=== PATIENT | male | born 1985 | race Two or more races ===

== ENCOUNTER 2025-05-22 21:43 | Emergency (ER) | payer OTHER ==
[~2025-05-22] VITALS: Ht 170.2 cm; Wt 86.0 kg
[2025-05-22] MEDS ORDERED: SODIUM CHLORIDE 0.9% 1,000 ML IV ONE (22:00)
[2025-05-22] MEDS ORDERED: ONDANSETRON HCL 4 MG/2 ML VIAL IV ONE (22:00)
[2025-05-22] MEDS ORDERED: MORPHINE SULFATE 4 MG/ML SYR/VIAL IV ONE (22:00)
--- NOTE | 2025-05-22 22:20 | ED.PDOC ---
History of Present Illness HPI Comments 39-year-old male with a history of gallstones status post removal, appendectomy and umbilical hernia repair brought in by family complaining of right upper quadrant pain radiating to the right flank and back, onset yesterday. Patient describes the pain as pulsating, severe, waxing and waning, associated with nausea but no vomiting. He denies fever, diarrhea, constipation or dysuria. Chief Complaint: Abdominal Pain Time Seen by MD: 21:52 Reviewed Notes: Nurses Notes Allergies: Coded Allergies: NO KNOWN ALLERGIES (Unverified , 05/22/25) Information Source: Patient Mode of Arrival: Ambulatory Past Medical History PAST MEDICAL HISTORY: Gallstones Past Medical History (Other): Gallstones Surgical History: Appendectomy, Cholecystectomy, Hernia Repair (Umbilical) Family History Family History: Reviewed,noncontributory to illness Social History Smoker: Non-Smoker Alcohol: Denies ETOH Use Drugs: Denies Drug Use Lives In: Home All Other Systems: Reviewed and Negative (Comprehensive systems review obtained and negative except for what is stated in the HPI.) Physical Exam General Appearance: No Apparent Distress HEENT: Other (Pupils and face symmetric. Moist mucous membranes.) Neck: Full Range of Motion, Normal Inspection Respiratory: Lungs Clear, No Accessory Muscle Use, No Respiratory Distress, Normal Breath Sounds Cardiovascular: No Edema, No JVD, Regular Rate/Rhythm Breast Exam: Deferred Gastrointestinal: RLQ, RUQ, Soft, Tenderness (Right flank) Genitalia: Deferred Pelvic: Deferred Rectal: Deferred Extremities: Normal inspection, Normal range of motion, Non-tender, No pedal edema Neurologic: Alert (Oriented x4), Normal Affect, Normal Mood, Other (Ambulatory) Cerebellar Function: NOT DONE Reflexes: NOT DONE Skin: Dry, Normal Color, Warm Lymphatic: NOT DONE Was a procedure done? Was a procedure done?: No Differential Dx Considerations may include: Gastroenteritis, gastritis, biliary tract disease (cholangitis, biliary obstruction), bowel obstruction, ileus, colitis, diverticular disease, UTI, kidney stone, among others X-Ray, Labs, Meds, VS Vital Signs Date Time Temp Pulse Resp B/P (MAP) Pulse Ox O2 Delivery O2 Flow Rate FiO2 05/22/25 21:43 98.2 80 18 116/71 (86) 96 98.2 Lab Test 05/22/25 22:44 Range/Units White Blood Count 8.6 4.4-10.8 10^3/uL Red Blood Count 5.41 4.5-5.90 10^6/uL Hemoglobin 17.5 13.5-17.5 g/dL Hematocrit 50.7 41.0-53.0 % Mean Corpuscular Volume 93.6 80.0-100.0 fL Mean Corpuscular Hemoglobin 32.4 H 28.0-32.0 pg Mean Corpuscular Hemoglobin Concent 34.6 32.0-36.0 g/dL Red Cell Distribution Width 13.7 11.8-14.3 % Platelet Count 196 140-450 10^3/uL Mean Platelet Volume 7.6 6.9-10.8 fL Neutrophils (%) (Auto) 55.2 37.0-80.0 % Lymphocytes (%) (Auto) 29.6 10.0-50.0 % Monocytes (%) (Auto) 11.5 0.0-12.0 % Eosinophils (%) (Auto) 2.9 0.0-7.0 % Basophils (%) (Auto) 0.8 0.0-2.0 % Neutrophils # (Auto) 4.7 1.6-8.6 10 ^3/uL Lymphocytes # (Auto) 2.5 0.4-5.4 10 ^3/uL Monocytes # (Auto) 1.0 0-1.3 10 ^3/uL Eosinophils # (Auto) 0.2 0-0.8 10 ^3/uL Basophils # (Auto) 0.1 0-0.2 10 ^3/uL Nucleated Red Blood Cells 0.2 % Sodium Level 141 136-145 mmol/L Potassium Level 4.1 3.5-5.1 mmol/L Chloride Level 105 98-107 mmol/L Carbon Dioxide Level 28 20-31 mmol/L Anion Gap 8 5-15 Blood Urea Nitrogen 9 9-23 mg/dL Creatinine 1.27 0.700-1.30 mg/dL Glomerular Filtration Rate Calc 73 >90 mL/min BUN/Creatinine Ratio 7.1 L 10.0-20.0 Serum Glucose 93 74-106 mg/dL Calcium Level 9.5 8.7-10.4 mg/dL Total Bilirubin 1.0 0.2-1.0 mg/dL Aspartate Amino Transferase (AST) 65 H 13-40 U/L Alanine Aminotransferase (ALT) 162 H 7-40 U/L Alkaline Phosphatase 84 46-116 U/L Total Protein 7.1 5.7-8.2 g/dL Albumin 4.7 3.2-4.8 g/dL Lipase 42 12-53 U/L [facility] [id number] [facility] [address] Ph: [phone] DIAGNOSTIC IMAGING Diagnostic Imaging Report : [id number] Signed PATIENT: AARON JOSEPHOACCT: [id number] UNIT: [id number] : 1985 LOC: ER ROOM / BED: / AGE / SEX: 39 / M ADM STATUS: REG ER SERVICE ORDERING PHYSICIAN: ALBERTO LYONS MD PROCEDURE(s): ABPL - CT AB PEL WO CON-NO ORAL OR IV REASON: R flank/abd/back pain ORDER NUMBER(s): [id number], ACCESSION NUMBER(s): [id number] Exam: CT CT AB PEL WO CON-NO ORAL OR IV History: R flank/abd/back pain Comparison Study: None Technique: Multidetector spiral CT of the abdomen was performed from lung bases to pubic symphysis. Imaging was performed without IV contrast. Axial, coronal an d sagittal multiplanar reformats were obtained from the axial data set by the technologist. Radiation Dose : 1. Abdomen/Pelvis: CTDIvol 10.35 mGy, DLP 672.22 mGy*cm. Findings: Evaluation of solid organs is limited due to lack of intravenous contrast use. Lung Bases: No acute or significant lung base finding. Normal heart size. No pleural or pericardial effusion. Liver: The liver is mildly enlarged, measuring 19.3 cm in craniocaudal dimension. Diffuse hepatic steatosis. No focal lesions. Gallbladder and Biliary Tree: Gallbladder not identified. Spleen: Unremarkable Pancreas: The pancreas is grossly normal in appearance. Adrenal Glands: Unremarkable Kidneys: Kidneys are grossly normal without calculi or hydronephrosis. Bladder: Grossly unremarkable for degree of distention. Bowel: The stomach is grossly normal in appearance. Small bowel and colon are normal in caliber and distribution. Colonic diverticula without CT evidence of acute diverticulitis. The appendix is surgically absent. Ascites: Absent Lymphadenopathy: No mesenteric, retroperitoneal or periportal lymphadenopathy. Abdominal Wall and Mesentery: Unremarkable. Vasculature: The visualized abdominal aorta is normal in size and caliber. Evaluation of abdominal and pelvic vessels is limited due to lack of intravenous contrast. Pelvic Organs: Unremarkable Musculoskeletal: No aggressive focal bony lesions, acute fractures or dislocation. IMPRESSION: 1. No acute abdominal or pelvic findings. 2. Hepatomegaly and hepatic steatosis. 3. Diverticulosis coli without CT evidence of acute diverticulitis. Radiation optimization: All CT scans at this facility use at least one of these dose optimization techniques: automated exposure control mA and/or kV adjustment per patient size (includes targeted exams where dose is matched to clinical indication) or iterative reconstruction. X-Ray, Labs, Meds, VS Comment 39-year-old male with a history of gallstones status post cholecystectomy, umbilical hernia repair and appendectomy brought in by family complaining of right-sided abdominal pain radiating to the right flank and back, associated with nausea Vitals unremarkable Exam remarkable for right-sided abdominal and flank tenderness to palpation Rhythm strip independently interpreted by me: Sinus rhythm, rate 80, no ectopy. CT abdomen and pelvis IMPRESSION: 1. No acute abdominal or pelvic findings. 2. Hepatomegaly and hepatic steatosis. 3. Diverticulosis coli without CT evidence of acute diverticulitis. CBC unremarkable, CMP remarkable for AST 65, ALT 162, lipase normal, UA was ordered but was never provided. Patient treated with the following in the ED: 1 L 0.9 normal saline IV bolus, morphine 4 mg IV, Zofran 4 mg IV. On re- evaluation, pain had improved. Vitals were stable. Hospitalization was considered, however patient had an essentially unremarkable workup and rapid improvement of symptoms with treatment in the ED, and I no longer feel hospitalization is necessary. He appears stable for discharge with close outpatient follow-up with his primary physician and a prescription for pain medication. I will cover him for possible UTI, as he did not provide a urine sample. Rx Bentyl, Zofran, Cipro, Tylenol Time of 1ST Reevaluation: 22:30 Reevaluation 1ST: Unchanged Patient Education/Counseling: Diagnosis, Treatment, Need For Follow Up Family Education/Counseling: No Family Present SEPSIS Sepsis Screen Date sepsis recognized/suspect: May 22, 2025 Time Sepsis recognized/suspect: 2142 Recent Procedure: No On Antibiotic Therapy: No Respiratory Rate >20: No Heart Rate >90: No Temp<36 C (96.8 F) or >38.3 C: No SBP <90 or MAP <65 mmHG: No New Acute Mental Status Change: No Is the patient on CPAP, BIPAP,: No Physician Orders Urinalysis (05/22/25 21:58) Ct Ab Pel Wo Con-No Oral Or Iv (05/22/25 21:58) Straightcath If Unable To Void (05/22/25 23:52) Vital Signs Date Time Temp Pulse Resp B/P (MAP) Pulse Ox O2 Delivery O2 Flow Rate FiO2 05/22/25 21:43 98.2 80 18 116/71 (86) 96 98.2 Laboratory Tests Test 05/22/25 22:44 White Blood Count 8.6 10^3/uL (4.4-10.8) Departure 1 Departure Time of Disposition: 01:34 Impression: Primary Impression: Abdominal pain Qualified Codes: R10.11 - Right upper quadrant pain Disposition: 01 HOME / SELF CARE / HOMELESS Condition: Stable Additional Instructions: Your blood tests were unremarkable. Your CT scan was unremarkable. I have prescribed medication for pain and antibiotics for a possible infection. Follow-up with your primary doctor in 1-2 days. Return to ER for persistent or worsening symptoms. [place] [address] Ph: [phone] DIAGNOSTIC IMAGING Diagnostic Imaging Report : [id number] Signed PATIENT: BERTRAM JOSEPH ACCT: [id number] UNIT: [id number] : 1985 LOC: ER ROOM / BED: / AGE / SEX: 39 / M ADM STATUS: REG ER SERVICE [id number] ORDERING PHYSICIAN: ALBERTO LYONS MD PROCEDURE(s): ABPL - CT AB PEL WO CON-NO ORAL OR IV REASON: R flank/abd/back pain ORDER NUMBER(s): [id number], ACCESSION NUMBER(s): [id number] Exam: CT CT AB PEL WO CON-NO ORAL OR IV History: R flank/abd/back pain Comparison Study: None Technique: Multidetector spiral CT of the abdomen was performed from lung bases to pubic symphysis. Imaging was performed without IV contrast. Axial, coronal and sagittal multiplanar reformats were obtained from the axial data set by the technologist. Radiation Dose : 1. Abdomen/Pelvis: CTDIvol 10.35 mGy, DLP 672.22 mGy*cm. Findings: Evaluation of solid organs is limited due to lack of intravenous contrast use. Lung Bases: No acute or significant lung base finding. Normal heart size. No pleural or pericardial effusion. Liver: The liver is mildly enlarged, measuring 19.3 cm in craniocaudal dimension. Diffuse hepatic steatosis. No focal lesions. Gallbladder and Biliary Tree: Gallbladder not identified. Spleen: Unremarkable Pancreas: The pancreas is grossly normal in appearance. Adrenal Glands: Unremarkable Kidneys: Kidneys are grossly normal without calculi or hydronephrosis. Bladder: Grossly unremarkable for degree of distention. Bowel: The stomach is grossly normal in appearance. Small bowel and colon are normal in caliber and distribution. Colonic diverticula without CT evidence of acute diverticulitis. The appendix is surgically absent. Ascites: Absent Lymphadenopathy: No mesenteric, retroperitoneal or periportal lymphadenopathy. Abdominal Wall and Mesentery: Unremarkable. Vasculature: The visualized abdominal aorta is normal in size and caliber. Evaluation of abdominal and pelvic vessels is limited due to lack of intravenous contrast. Pelvic Organs: Unremarkable Musculoskeletal: No aggressive focal bony lesions, acute fractures or dislocation. IMPRESSION: 1. No acute abdominal or pelvic findings. 2. Hepatomegaly and hepatic steatosis. 3. Diverticulosis coli without CT evidence of acute diverticulitis. Radiation optimization: All CT scans at this facility use at least one of these dose optimization techniques: automated exposure control mA and/or kV adjustment per patient size (includes targeted exams where dose is matched to clinical indication) or iterative reconstruction. e-Prescriptions Acetaminophen (Tylenol Extra Strength) 500 Mg Tab 1000 MG PO Q6HP PRN, #30 TAB Prn fever or pain Prov: ALBERTO LYONS MD 05/23/25 Ondansetron Odt 4MG Tab (ZOFRAN PO) 4 Mg Tb 4 MG PO TID PRN, #30 TAB Prn nausea/vomiting ODT TAB-DISSOLVE IN MOUTH, THEN SWALLOW Prov: ALBERTO LYONS MD 05/23/25 Dicyclomine Hcl (BENTYL CAPSULE) 10 Mg Cp 2 CAP PO Q6HP PRN, #30 CAP 11 Refills Prn abdominal pain Prov: ALBERTO LYONS MD 05/23/25 Ciprofloxacin Hcl (Cipro) 500 Mg Tab 1 TAB PO BID for 7 Days, #14 TAB Prov: ALBERTO LYONS MD 05/23/25 Discharged With: Relative Critical Care Note Critical Care Time?: No Stability Stability form required: No Heart Score Heart Score: Heart Score Response (Comments) Value History N/A 0 EKG N/A 0 Age N/A 0 Risk Factors N/A 0 Troponin N/A 0 Total 0 ALBERTO LYONS MD May 22, 2025 22:20
[2025-05-22 22:44] LABS: Hematocrit 50.7 % (41.0-53.0); Hemoglobin 17.5 g/dL (13.5-17.5); Mean Corpuscular Hemoglobin 32.4 pg (28.0-32.0); Mean Corpuscular Volume 93.6 fL (80.0-100.0); Nucleated Red Blood Cells % 0.2 %
[2025-05-22 23:01] LABS: Albumin 4.7 g/dL (3.2-4.8); Alkaline Phosphatase 84 U/L (46-116); Anion Gap 8 (5-15); BUN/Creatinine Ratio 7.1 (10.0-20.0); Bilirubin, Total 1.0 mg/dL (0.2-1.0); Calcium 9.5 mg/dL (8.7-10.4); Carbon Dioxide 28 mmol/L (20-31); Chloride 105 mmol/L (98-107); Glucose 93 mg/dL (74-106); Lipase 42 U/L (12-53); Potassium 4.1 mmol/L (3.5-5.1); Sodium 141 mmol/L (136-145); Total Protein 7.1 g/dL (5.7-8.2)
[2025-05-22 23:05] LABS: Alanine Aminotransferase 162 U/L (7-40); Blood Urea Nitrogen 9 mg/dL (9-23)
--- NOTE | 2025-05-22 23:28 | DVH ---
Exam: CT CT AB PEL WO CON-NO ORAL OR IV History: R flank/abd/back pain Comparison Study: None Technique: Multidetector spiral CT of the abdomen was performed from lung bases to pubic symphysis. I maging was performed without IV contrast. Axial, coronal and sagittal multiplanar reformats were obta ined from the axial data set by the technologist. Radiation Dose : 1. Abdomen/Pelvis: CTDIvol 10.35 mGy, DLP 672.22 mGy*cm. Findings: Evaluation of solid organs is limited due to lack of intravenous contrast use. Lung Bases: No acute or significant lung base finding. Normal heart size. No pleural or pericardial effusion. Liver: The liver is mildly enlarged, measuring 19.3 cm in craniocaudal dimension. Diffuse hepatic julieta atosis. No focal lesions. Gallbladder and Biliary Tree: Gallbladder not identified. Spleen: Unremarkable Pancreas: The pancreas is grossly normal in appearance. Adrenal Glands: Unremarkable Kidneys: Kidneys are grossly normal without calculi or hydronephrosis. Bladder: Grossly unremarkable for degree of distention. Bowel: The stomach is grossly normal in appearance. Small bowel and colon are normal in caliber and d istribution. Colonic diverticula without CT evidence of acute diverticulitis. The appendix is surgica lly absent. Ascites: Absent Lymphadenopathy: No mesenteric, retroperitoneal or periportal lymphadenopathy. Abdominal Wall and Mesentery: Unremarkable. Vasculature: The visualized abdominal aorta is normal in size and caliber. Evaluation of abdominal a nd pelvic vessels is limited due to lack of intravenous contrast. Pelvic Organs: Unremarkable Musculoskeletal: No aggressive focal bony lesions, acute fractures or dislocation. IMPRESSION: 1. No acute abdominal or pelvic findings. 2. Hepatomegaly and hepatic steatosis. 3. Diverticulosis coli without CT evidence of acute diverticulitis. Radiation optimization: All CT scans at this facility use at least one of these dose optimization katalina hniques: automated exposure control mA and/or kV adjustment per patient size (includes targeted exam s where dose is matched to clinical indication) or iterative reconstruction.
[2025-05-23] MEDS ORDERED: ACET-1304 PO (01:38)
[2025-05-23] MEDS ORDERED: ZOFR4T PO (01:38)
[2025-05-23] MEDS ORDERED: CIPR-173 PO (01:38)
[2025-05-23] MEDS ORDERED: DICY10CA PO (01:38)
[2025-05-23 03:05] LABS: Urine Protein, UAD Negative (Negative)
[2025-05-23 05:00] VITALS: BP 103/66; PULSE 60; RESP 18; TEMP 98.1; O2SAT 95
[2025-05-23] MEDS: ACETAMINOPHEN 500 MG TAB or CAP PO ONE (05:04)
[2025-05-23] MEDS: ACETAMINOPHEN 325 MG TAB PO ONE (05:04)
== END 2025-05-23 05:05 | disposition home or self-care (01) ==
LOC: ER 21:43
DX: R10.11 Right upper quadrant pain (principal); Z98.890 Other specified postprocedural states; Z90.49 Acquired absence of other specified parts of digestive tract
CPT/HCPCS: 36415; 74176; 80053; 81001; 83690; 85025